=== PATIENT | male | born 1975 | race Caucasian/White ===

== ENCOUNTER → 2024-07-25 | Outpatient (CLI) | payer BC, OTHER, SELFPAY ==
[2024-07-25 09:17] LABS: Basophils # (Auto) 0.1 Thou/mm3 (0.0-0.2); Basophils % (Auto) 1 % (0-2.5); Eosinophils # (Auto) 0.1 Thou/mm3 (0.0-0.5); Eosinophils % (Auto) 3 % (0-10); Hematocrit 37.5 % (41.0-53.0); Hemoglobin 13.8 g/dL (13.5-16.0); Immature Granulocytes % (Auto) 0 % (0-0); Lymphocytes # (Auto) 1.4 Thou/mm3 (1.0-4.8); Lymphocytes % (Auto) 40 % (10-50); Mean Corpuscular HGB Conc 36.8 g/dl (31.0-37.0); Mean Corpuscular Volume 87 fL (80-100); Monocytes # (Auto) 0.3 Thou/mm3 (0.0-0.8); Monocytes % (Auto) 9 % (0-12); Neutrophils # (Auto) 1.6 Thou/mm3 (1.8-7.7); Neutrophils % (Auto) 47 % (37-80); Nucleated Red Blood Cell % 0 /100 WBC (0); Platelet Count 162 Thou/mm3 (140-440); RDW Standard Deviation 40.1 fL (35.1-43.9); Red Blood Count 4.31 Miln/mm3 (4.50-5.90); White Blood Count 3.5 Thou/mm3 (3.8-10.6)
[2024-07-25 09:42] LABS: Alanine Aminotransferase 39 U/L (10-49); Albumin, Serum 4.2 gm/dL (3.5-5.0); Albumin/Globulin Ratio 1.8 (1.2-2.2); Alkaline Phosphatase 68 U/L (46-116); Anion Gap 3 (7-16); Aspartate Amino Transferase 21 U/L (0-34); BUN/Creatinine Ratio 16 Ratio (12-20); Bilirubin,Total 3.4 mg/dL (0.3-1.2); Blood Urea Nitrogen 16 mg/dL (9-23); Calcium 9.3 mg/dL (8.3-10.6); Calcium (Corrected) 9.3 mg/dL (8.5-10.1); Carbon Dioxide 27.7 mMol/L (20.0-31.0); Chloride 108 mMol/L (98-107); Globulin 2.4 gm/dL (2.3-3.5); Glucose 92 mg/dL (74-106); Osmolality,Calculated 278 (275-295); Potassium 4.7 mMol/L (3.4-5.1); Sodium 139 mMol/L (136-145); Total Protein 6.6 gm/dL (5.7-8.2); eGFR > 60 See Note
== END | disposition home or self-care (01) ==
PROVIDERS: PCP Family Medicine; Referring Provider Nurse Practitioner Family; Visit Provider Nurse Practitioner Family
DX: D64.9 Anemia, unspecified (principal); D72.819 Decreased white blood cell count, unspecified
CPT/HCPCS: 36415; 80053; 85025

== ENCOUNTER 2024-07-29 10:24 | Outpatient (RCR) | payer BC, OTHER, SELFPAY ==
--- NOTE | 2024-07-30 06:41 | CTCCONSULT_ITS ---
[address] [address] CONSULTATION NOTE DATE OF VISIT: 07/30/2024 NAME: BLAYNE MARCUS Account:??[id number] : 1975 AGE: 49 DIAGNOSIS: Anemia, unspecified Elevated white blood cell count, unspecified(leukocytosis)Leukopenia and history of anemia Hyperbilirubinemia from Gilbert's syndrome REFERRING PHYSCIAN: Randee Thomas PRIMARY PHYSCIAN: Randee Thomas REASON FOR CONSULTATION: Leukopenia, hyperbilirubinemia and anemia REASON FOR TODAY?S VISIT patient is here for follow-up patient was referred due to decreased WBC and history of anemia. Patient says was diagnosed with Gilbert's syndrome. Patient take care that he ea ts small frequent meals. He has mildly low hemoglobin white cell count and elevated bilirubin. He s ays his labs his always been like this. Patient is here for follow-up HISTORY OF PRESENT ILLNESS: Blayne Balderas is a 49-year-old Chinese-speaking male who was referred due to leukopenia and history of anemia. Patient had a colonoscopy done on 02/29/2024. Pat ient had a colonoscopy screening done 02/29/2024 showed hemorrhoids and mild diverticulosis, repeat co lonoscopy in 10 years. Had endoscopy done on 10/01/2020 showed GERD, no bleeding. 07/24/2023: WBC 3.9, ANC 2.3, hemoglobin 13.7, MCV 88, platelets 160,000 11/26/2023: WBC 2.8, ANC 1.2, hemoglobin 13.7, MCV 87, platelets 167,000 01/09/2024: Peripheral blood smear-minimal anemia with unremarkable red blood cell morphology 01/09/2024: WBC 3.8, ANC 2.2, hemoglobin 13.9, MCV 87, platelets 175,000 04/08/2024: WBC 3.5, ANC 1.8, hemoglobin 13.8, MCV 87, platelets 164,000, AST 27, ALT 38, T. bili 4.8, TSH 1.43 PAST MEDICAL HISTORY: PAST SURGICAL HISTORY: FAMILY HISTORY: SOCIAL HISTORY: [employer] HISTORY: MEDICATIONS: Rachael [fexofenadine hcl] pantoprazole Medications last reconciled 06/24/2024 ALLERGIES: Penicillins REVIEW OF SYSTEMS Neurological: No headache, seizures or blurring of vision. Gastrointestinal: No nausea, vomiting, diarrhea or constipation. Cardiovascular: No palpitations or angina pains. Respiratory: No cough, chest pain or shortness of breath. PHYSICAL EXAMINATION: Vital Signs: Reviewed and are stable Pain: 0 Alert oriented x 4 MSE 90 mouth: No Lesions. Neck: Soft, supple, no adenopathy. Chest: Clear to auscultation. No wheezes or rales audible. Cardiac: Rhythm regular, no murmurs or gallops present. Abdomen: Soft. No hepatosplenomegaly. No splenomegaly. Extremities: No pedal edema. Cyanosis. LABORATORY DATA: Date 07/25/2024 Time 8:23 AM CBC ? ??WHITE BLOOD COUNT (Thou/mm3) 3.5 L ??RED BLOOD COUNT (Miln/mm3) 4.31 L ??HEMOGLOBIN (gm/dl) 13.8 ??HEMATOCRIT (%) 37.5 L ??MCV (MEAN CORPUSCULAR VOL) (fl) 87 ??MCH (MEAN CORPUSCULAR HGB) (pg) 32.0 ??MCHC (MEAN CORPSCULR HGB CONC) (gm/dl) 36.8 ??RDW (RBC DISTRIBUTION WD) SD (fl) 40.1 ??PLATELET COUNT (Thou/mm3) 162 ??NEUTROPHILS %, AUTO (%) 47 ??LYMPH %, AUTO (%) 40 ??MONO %, AUTO (%) 9 ??EOS %, AUTO (%) 3 ??BASO %, AUTO (%) 1 ??NUCLEATED RBC % (/100 WBC) 0 ??NEUTROPHILS, AUTO (Thou/mm3) 1.6 L ??LYMPH, AUTO (Thou/mm3) 1.4 ??MONO, AUTO (Thou/mm3) 0.3 ??EOS, AUTO (Thou/mm3) 0.1 ??BASO, AUTO (Thou/mm3) 0.1 ??NUCLEATED RBC # (Thou/mm3) 0.00 ??IMMATURE GRANULOCYTES % AUTO (%) 0 ??IMMATURE GRANULOCYTES, AUTO (Thou/mm3) 0.00 Chemistry ? ??GLUCOSE,RANDOM (mg/dL) 92 ??BLOOD UREA NITROGEN (mg/dL) 16 ??CREATININE (mg/dL) 1.00 ??SODIUM (mmol/L) 139 ??POTASSIUM (mmol/L) 4.7 ??CHLORIDE (mmol/L) 108 H ??CO2 (CARBON DIOXIDE) (mmol/L) 27.7 ??ANION GAP (mmol/L) 3 L ??OSMOLALITY, CALC 278 ??BUN/CREATININE RATIO (Ratio) 16 ??CrCl (CandG) (ml/min) 96.96 ??AST/SGOT (Unit/L) 21 ??ALT/SGPT (Unit/L) 39 ??ALKALINE PHOSPHATASE (Unit/L) 68 ??BILIRUBIN, TOTAL (mg/dL) 3.4 H ??PROTEIN TOTAL (gm/dl) 6.6 ??ALBUMIN, SERUM (gm/dl) 4.2 ??GLOBULIN (gm/dl) 2.4 ??ALBUMIN/GLOBULIN RATIO 1.8 ??CALCIUM, SERUM (mg/dL) 9.3 ??CALCIUM SERUM (CORRECTED) (mg/dL) 9.3 ? ??Initials [facility] ??Approved By [facility] Other Labs ? ??CrCl (J) (ml/min) 74.0 ??eGFR (See Note) > 60 ASSESSMENT AND PLAN: #1. History of leukopenia for about 20 years according to patient. Labs shows white cell count about 3.5 Patient denies any fever weight loss Patient have no infections Will do nutritional workup Will check for liver status to make sure patient do not have cirrhosis Will check for spleen Patient have mixed genetic inheritance and patient's white cell count will be normal for him #2 hyperbilirubinemia and history of anemia Patient is known to have Gilbert's syndrome Will check for liver function Hemoglobin electrophoresis Advised follow-up with gastroenterology If patient is actively hemolyzing, will check for LDH and haptoglobin EGD showed GERD with esophagitis, acute gastritis without bleeding, 10/01/2023 Patient is not anemic anymore Will also check for testosterone level labs before the next visit Electronically signed by Dr. Mauricio Colmenares electronically Signed by: {Object.Sanct_ID*PnP.NameFL}, {Object.Sanct_ID*PnP.Suffix} on {Object.Sanc t_Date} at {Object.Sanct_Time} ?? cc: Ricky Thomas, Referring: Randee Thomas This document was completed utilizing speech recognition software. Grammatical errors, random word in sertions, pronoun errors, and incomplete sentences are an occasional consequence of this system due t o software limitations, ambient noise, and hardware issues. Any formal questions or concerns about th e content, text or information contained within the body of this dictation should be directly address ed to the provider for clarification. Patient: BLAYNE MARCUS : 1975 MR#: [id number] CONSULTATION NOTE Page 6 of 6
== END 2024-08-09 23:59 | disposition home or self-care (01) ==
LOC: SCTC 10:24
PROVIDERS: PCP Family Medicine; Referring Provider Family Medicine; Visit Provider Internal Medicine Hematology & Oncology
DX: D64.9 Anemia, unspecified (principal); D72.819 Decreased white blood cell count, unspecified; E80.4 Gilbert syndrome; E80.6 Other disorders of bilirubin metabolism
CPT/HCPCS: 99212; G0463

== ENCOUNTER → 2024-08-22 | Outpatient (CLI) | payer BC, OTHER, SELFPAY ==
[2024-08-22 11:44] LABS: Immature Reticulocyte Fraction 7.7 % (2.3-13.4); Reticulocyte % (Auto) 1.4 % (0.5-1.5); Reticulocyte Absolute Auto 60.3 Biln/L (25.0-75.0); Reticulocyte Hgb Content 37.5 pg (28.0-35.0)
[2024-08-22 12:00] LABS: Bilirubin,Direct 0.9 mg/dL (0.0-0.3); Bilirubin,Total 3.1 mg/dL (0.3-1.2); LDH (Lactate Dehydrogenase) 185 U/L (120-246)
[2024-08-22 12:10] LABS: Folate 18.71 ng/mL (>5.38); Vitamin B12 401 pg/mL (211-911)
[2024-08-22 12:25] LABS: Ferritin 108 ng/mL (10.5-307.3); Iron 97 mcg/dL (65-175); Percent Iron Saturation 31 % (20-55); Total Iron Binding Capacity 305 mcg/dL (250-425); Unsaturated Iron Binding 208 (225-295)
[2024-08-29 05:07] LABS: Hemoglobinopathy Hematocrit 39.4 % (38.5-50.0); Hemoglobinopathy Hemoglobin 13.4 g/dL (13.2-17.1); Hemoglobinopathy Hemoglobin A2 2.6 % (2.0-3.2); Hemoglobinopathy MCH 31.8 pg (27.0-33.0); Hemoglobinopathy MCV 93.6 fL (80.0-100.0); Hemoglobinopathy Red Blood Cnt 4.21 Million/uL (4.20-5.80)
[2024-08-29 13:39] LABS: Haptoglobin* <10 mg/dL (43-212); Testosterone,Total* 841 ng/dL (250-1100)
[2024-08-29 13:40] LABS: Hemoglobinopathy Hemoglobin A 97.4 %; Hemoglobinopathy RDW 12.9 % (11.0-15.0)
== END | disposition home or self-care (01) ==
PROVIDERS: PCP Nurse Practitioner Family; Referring Provider Internal Medicine Hematology & Oncology; Visit Provider Internal Medicine Hematology & Oncology
DX: D64.9 Anemia, unspecified (principal); D72.829 Elevated white blood cell count, unspecified
CPT/HCPCS: 36415; 82247; 82248; 82607; 82728; 82746; 83010; 83020; 83540; 83550; 83615; 84403; 85014; 85018; 85041; 85046

== ENCOUNTER → 2024-09-04 | Outpatient (CLI) | payer BC, OTHER, SELFPAY ==
--- NOTE | 2024-09-04 07:15 | XR_ITS ---
Examination: Abdomen sonogram, complete Date and time of exam: September 04, 2024 0716 hours INDICATIONS: Abdominal pain history, cholecystectomy November 2023. Technique: Multiple real-time grayscale transabdominal sonographic images of the abdomen have been obtained. Findings: Absent gallbladder Normal common bile duct 0.3 cm Pancreatic head 2.2 cm Aorta not enlarged Liver normal size 13.1 cm Normal hepatopedal portal venous flow Patent IVC Right kidney 10.4 x 6.4 x 6.3 cm cortex 1.3 cm Left kidney 11.0 x 4.7 x 5.6 cm renal cortex 1.2 cm Mild to moderate bilateral renal parenchymal scar formation 13 mm cyst anterior left kidney No hydronephrosis Spleen 9.5 cm IMPRESSION: Negative for hepatosplenomegaly
== END | disposition home or self-care (01) ==
LOC: CDIM 06:40
PROVIDERS: PCP Family Medicine; Referring Provider Internal Medicine Hematology & Oncology; Visit Provider Internal Medicine Hematology & Oncology
DX: D64.9 Anemia, unspecified (principal)
CPT/HCPCS: 76700

== ENCOUNTER 2024-09-09 08:39 | Outpatient (RCR) | payer BC, OTHER, SELFPAY | END 2024-09-09 23:59 | disposition home or self-care (01) | LOC: SCTC 08:39 | PROVIDERS: PCP Family Medicine; Referring Provider Family Medicine; Visit Provider Nurse Practitioner Family | DX: Z09 Encounter for follow-up examination after completed treatment for conditions other than malignant neoplasm (principal); Z86.2 Personal history of diseases of the blood and blood-forming organs and certain disorders involving the immune mechanism; E80.4 Gilbert syndrome; E80.6 Other disorders of bilirubin metabolism | CPT/HCPCS: 99212; G0463 ==

== ENCOUNTER 2024-10-23 14:35 | Outpatient (RCR) | payer BC, OTHER, SELFPAY | END 2024-11-07 23:59 | disposition home or self-care (01) | LOC: SCTC 14:35 | PROVIDERS: PCP Family Medicine; Referring Provider Family Medicine; Visit Provider Nurse Practitioner Family | DX: D72.819 Decreased white blood cell count, unspecified (principal); E80.4 Gilbert syndrome | CPT/HCPCS: 99212; G0463 ==

== ENCOUNTER → 2024-10-23 | Outpatient (CLI) | payer BC, OTHER, SELFPAY ==
[2024-10-23 11:49] LABS: Basophils % (Auto) 1 % (0-2.5); Eosinophils # (Auto) 0.1 Thou/mm3 (0.0-0.5); Eosinophils % (Auto) 2 % (0-10); Hematocrit 37.9 % (41.0-53.0); Immature Granulocytes % (Auto) 0 % (0-0); Immature Granulocytes Auto 0.01 Thou/mm3 (0.00-0.00); Immature Reticulocyte Fraction 5.6 % (2.3-13.4); Lymphocytes # (Auto) 1.4 Thou/mm3 (1.0-4.8); Lymphocytes % (Auto) 39 % (10-50); Mean Corpuscular HGB Conc 36.9 g/dl (31.0-37.0); Mean Corpuscular Hemoglobin 32.3 pg (25.0-35.0); Mean Corpuscular Volume 87 fL (80-100); Monocytes # (Auto) 0.3 Thou/mm3 (0.0-0.8); Monocytes % (Auto) 8 % (0-12); Neutrophils # (Auto) 1.8 Thou/mm3 (1.8-7.7); Neutrophils % (Auto) 50 % (37-80); Nucleated Red Blood Cell % 0 /100 WBC (0); Platelet Count 160 Thou/mm3 (140-440); RDW Standard Deviation 39.3 fL (35.1-43.9); Red Blood Count 4.34 Miln/mm3 (4.50-5.90); Reticulocyte % (Auto) 1.3 % (0.5-1.5); Reticulocyte Absolute Auto 54.7 Biln/L (25.0-75.0); Reticulocyte Hgb Content 35.6 pg (28.0-35.0); White Blood Count 3.6 Thou/mm3 (3.8-10.6)
[2024-10-23 12:02] LABS: Alanine Aminotransferase 51 U/L (10-49); Albumin, Serum 4.3 gm/dL (3.5-5.0); Albumin/Globulin Ratio 1.7 (1.2-2.2); Alkaline Phosphatase 67 U/L (46-116); Anion Gap 6 (7-16); Aspartate Amino Transferase 30 U/L (0-34); BUN/Creatinine Ratio 15 Ratio (12-20); Bilirubin,Total 4.4 mg/dL (0.3-1.2); Blood Urea Nitrogen 17 mg/dL (9-23); Calcium 9.8 mg/dL (8.3-10.6); Calcium (Corrected) 9.8 mg/dL (8.5-10.1); Carbon Dioxide 28.8 mMol/L (20.0-31.0); Chloride 109 mMol/L (98-107); Creatinine (Component) 1.1 mg/dL (0.6-1.3); Globulin 2.5 gm/dL (2.3-3.5); Glucose 96 mg/dL (74-106); LDH (Lactate Dehydrogenase) 168 U/L (120-246); Osmolality,Calculated 288 (275-295); Potassium 4.7 mMol/L (3.4-5.1); Sodium 144 mMol/L (136-145); Total Protein 6.8 gm/dL (5.7-8.2); eGFR > 60 See Note
[2024-10-23 12:07] LABS: Folate 16.77 ng/mL (>5.38); Vitamin B12 463 pg/mL (211-911)
[2024-10-23 12:38] LABS: Ferritin 117 ng/mL (10.5-307.3); Iron 214 mcg/dL (65-175); Percent Iron Saturation 67 % (20-55); Total Iron Binding Capacity 315 mcg/dL (250-425); Unsaturated Iron Binding 101 (225-295)
[2024-10-30 06:25] LABS: Haptoglobin* <10 mg/dL (43-212)
== END | disposition home or self-care (01) ==
LOC: SCTO 10:08
PROVIDERS: PCP Family Medicine; Referring Provider Nurse Practitioner Family; Visit Provider Nurse Practitioner Family
DX: D64.9 Anemia, unspecified (principal); D72.829 Elevated white blood cell count, unspecified
CPT/HCPCS: 36415; 80053; 82607; 82728; 82746; 83010; 83540; 83550; 83615; 85025; 85046

== ENCOUNTER → 2024-11-18 | Outpatient (CLI) | payer BC, OTHER, SELFPAY ==
[2024-11-18 14:57] LABS: Basophils % (Auto) 0 % (0-2.5); Eosinophils % (Auto) 0 % (0-10); Hematocrit 37.3 % (41.0-53.0); Hemoglobin 13.9 g/dL (13.5-16.0); Immature Granulocytes % (Auto) 0 % (0-0); Immature Granulocytes Auto 0.03 Thou/mm3 (0.00-0.00); Immature Reticulocyte Fraction 7.4 % (2.3-13.4); Lymphocytes # (Auto) 1.4 Thou/mm3 (1.0-4.8); Lymphocytes % (Auto) 12 % (10-50); Mean Corpuscular HGB Conc 37.3 g/dl (31.0-37.0); Mean Corpuscular Volume 86 fL (80-100); Monocytes # (Auto) 0.6 Thou/mm3 (0.0-0.8); Monocytes % (Auto) 5 % (0-12); Neutrophils # (Auto) 9.8 Thou/mm3 (1.8-7.7); Neutrophils % (Auto) 83 % (37-80); Nucleated Red Blood Cell % 0 /100 WBC (0); Platelet Count 174 Thou/mm3 (140-440); RDW Standard Deviation 39.1 fL (35.1-43.9); Red Blood Count 4.34 Miln/mm3 (4.50-5.90); Reticulocyte % (Auto) 1.7 % (0.5-1.5); Reticulocyte Absolute Auto 73.3 Biln/L (25.0-75.0); Reticulocyte Hgb Content 37.2 pg (28.0-35.0); White Blood Count 11.8 Thou/mm3 (3.8-10.6)
[2024-11-18 15:16] LABS: Alanine Aminotransferase 64 U/L (10-49); Albumin, Serum 4.5 gm/dL (3.5-5.0); Albumin/Globulin Ratio 1.7 (1.2-2.2); Alkaline Phosphatase 71 U/L (46-116); Anion Gap 8 (7-16); Aspartate Amino Transferase 32 U/L (0-34); BUN/Creatinine Ratio 15 Ratio (12-20); Blood Urea Nitrogen 16 mg/dL (9-23); Calcium 9.9 mg/dL (8.3-10.6); Calcium (Corrected) 9.9 mg/dL (8.5-10.1); Carbon Dioxide 27.2 mMol/L (20.0-31.0); Chloride 108 mMol/L (98-107); Creatinine (Component) 1.1 mg/dL (0.6-1.3); Globulin 2.7 gm/dL (2.3-3.5); Glucose 108 mg/dL (74-106); LDH (Lactate Dehydrogenase) 198 U/L (120-246); Osmolality,Calculated 287 (275-295); Potassium 4.3 mMol/L (3.4-5.1); Sodium 143 mMol/L (136-145); Total Protein 7.2 gm/dL (5.7-8.2); eGFR > 60 See Note
[2024-11-18 15:18] LABS: Ferritin 115 ng/mL (10.5-307.3); Iron 236 mcg/dL (65-175); Percent Iron Saturation 70 % (20-55); Total Iron Binding Capacity 337 mcg/dL (250-425); Unsaturated Iron Binding 101 (225-295)
[2024-11-26 06:51] LABS: Haptoglobin* 17 mg/dL (43-212)
== END | disposition home or self-care (01) ==
LOC: SCTO 14:19
PROVIDERS: PCP Family Medicine; Referring Provider Nurse Practitioner Family; Visit Provider Nurse Practitioner Family
DX: D64.9 Anemia, unspecified (principal); D72.829 Elevated white blood cell count, unspecified
CPT/HCPCS: 36415; 80053; 82728; 83010; 83540; 83550; 83615; 85025; 85046

== ENCOUNTER 2024-11-20 14:42 | Outpatient (RCR) | payer BC, OTHER, SELFPAY | END 2024-12-08 23:59 | disposition home or self-care (01) | LOC: SCTC 14:42 | PROVIDERS: PCP Family Medicine; Referring Provider Family Medicine; Visit Provider Nurse Practitioner Family | DX: E80.6 Other disorders of bilirubin metabolism (principal); E80.4 Gilbert syndrome; Z86.2 Personal history of diseases of the blood and blood-forming organs and certain disorders involving the immune mechanism | CPT/HCPCS: 99212; G0463 ==

== ENCOUNTER → 2024-12-22 | Outpatient (CLI) | payer BC, OTHER, SELFPAY ==
[2024-12-22 11:58] LABS: Alanine Aminotransferase 38 U/L (10-49); Albumin/Globulin Ratio 1.6 (1.2-2.2); Alkaline Phosphatase 78 U/L (46-116); Anion Gap 6 (7-16); Aspartate Amino Transferase 24 U/L (0-34); BUN/Creatinine Ratio 13 Ratio (12-20); Bilirubin,Total 3.5 mg/dL (0.3-1.2); Blood Urea Nitrogen 14 mg/dL (9-23); Calcium 9.1 mg/dL (8.3-10.6); Calcium (Corrected) 9.1 mg/dL (8.5-10.1); Carbon Dioxide 28.2 mMol/L (20.0-31.0); Chloride 110 mMol/L (98-107); Creatinine (Component) 1.1 mg/dL (0.6-1.3); Globulin 2.5 gm/dL (2.3-3.5); Glucose 84 mg/dL (74-106); LDH (Lactate Dehydrogenase) 174 U/L (120-246); Osmolality,Calculated 286 (275-295); Potassium 5.1 mMol/L (3.4-5.1); Sodium 144 mMol/L (136-145); Total Protein 6.5 gm/dL (5.7-8.2); eGFR > 60 See Note
[2024-12-22 12:01] LABS: Ferritin 91 ng/mL (10.5-307.3); Iron 117 mcg/dL (65-175); Percent Iron Saturation 36 % (20-55); Total Iron Binding Capacity 321 mcg/dL (250-425); Unsaturated Iron Binding 204 (225-295)
[2024-12-22 12:20] LABS: Basophils % (Auto) 1 % (0-2.5); Eosinophils # (Auto) 0.1 Thou/mm3 (0.0-0.5); Eosinophils % (Auto) 2 % (0-10); Hematocrit 36.9 % (41.0-53.0); Hemoglobin 13.7 g/dL (13.5-16.0); Immature Granulocytes % (Auto) 0 % (0-0); Immature Granulocytes Auto 0.01 Thou/mm3 (0.00-0.00); Immature Reticulocyte Fraction 8.3 % (2.3-13.4); Lymphocytes # (Auto) 1.1 Thou/mm3 (1.0-4.8); Lymphocytes % (Auto) 38 % (10-50); Mean Corpuscular HGB Conc 37.1 g/dl (31.0-37.0); Mean Corpuscular Hemoglobin 32.2 pg (25.0-35.0); Mean Corpuscular Volume 87 fL (80-100); Monocytes # (Auto) 0.3 Thou/mm3 (0.0-0.8); Monocytes % (Auto) 11 % (0-12); Neutrophils # (Auto) 1.4 Thou/mm3 (1.8-7.7); Neutrophils % (Auto) 48 % (37-80); Nucleated Red Blood Cell % 0 /100 WBC (0); Platelet Count 179 Thou/mm3 (140-440); RDW Standard Deviation 39.9 fL (35.1-43.9); Red Blood Count 4.26 Miln/mm3 (4.50-5.90); Reticulocyte % (Auto) 1.5 % (0.5-1.5); Reticulocyte Absolute Auto 62.2 Biln/L (25.0-75.0); Reticulocyte Hgb Content 36.9 pg (28.0-35.0)
[2024-12-29 08:16] LABS: Haptoglobin* 9 mg/dL (43-212)
== END | disposition home or self-care (01) ==
LOC: SCTO 10:49
PROVIDERS: PCP Family Medicine; Referring Provider Nurse Practitioner Family; Visit Provider Nurse Practitioner Family
DX: D64.9 Anemia, unspecified (principal); D72.829 Elevated white blood cell count, unspecified
CPT/HCPCS: 36415; 80053; 82728; 83010; 83540; 83550; 83615; 85025; 85046

== ENCOUNTER 2024-12-23 09:49 | Outpatient (RCR) | payer BC, OTHER, SELFPAY | END 2025-01-07 23:59 | disposition home or self-care (01) | LOC: SCTC 09:49 | PROVIDERS: PCP Nurse Practitioner Family; Referring Provider Nurse Practitioner Family; Visit Provider Nurse Practitioner Family | DX: Z09 Encounter for follow-up examination after completed treatment for conditions other than malignant neoplasm (principal); Z86.2 Personal history of diseases of the blood and blood-forming organs and certain disorders involving the immune mechanism; E80.4 Gilbert syndrome | CPT/HCPCS: 99212; G0463 ==

== ENCOUNTER → 2025-02-23 | Outpatient (CLI) | payer BC, OTHER, SELFPAY ==
--- NOTE | 2025-02-23 15:00 | XR_ITS ---
Examination: MRI abdomen with intravenous contrast. MRI abdomen without intravenous contrast. Date and time of exam: February 23, 2025 1611 hours INDICATIONS: Elevated white blood cell count beginning one year ago Technique: Multiple axial, sagittal and coronal sections of the abdomen obtained. Transverse images, TR 6020, TE 107. T1 weighted transverse images, TR 582, TE 9.5. T2-weighted sagittal images, TR 4000, TE 105. T2-weighted sagittal images, TR 4000, TE 5. Coronal images, TR 4210, TE 107. Axial and coronal images are obtained post 20 cc intravenous injection, gadolinium. Findings: IMPRESSION: Liver normal size No focal liver lesions or intrahepatic biliary tract dilatation Postcontrast images demonstrate no abnormal enhancement in the liver or spleen Absent gallbladder No pancreatic mass No hydronephrosis renal or ureteral calculi Aorta normal size No ascites No abdominal lymphadenopathy IMPRESSION: Negative for hepatosplenomegaly No focal liver or splenic lesions Normal pancreas No intra or extrahepatic biliary tract dilatation No abdominal lymphadenopathy. Negative for ascites
== END | disposition home or self-care (01) ==
LOC: SMRI 14:53
PROVIDERS: PCP Nurse Practitioner Family; Referring Provider Nurse Practitioner Family; Visit Provider Nurse Practitioner Family
DX: D64.9 Anemia, unspecified (principal); D72.829 Elevated white blood cell count, unspecified
CPT/HCPCS: 74183; A9579

== ENCOUNTER → 2025-02-23 | Outpatient (CLI) | payer BC, OTHER, SELFPAY ==
[2025-02-23 13:48] LABS: Basophils % (Auto) 1 % (0-2.5); Eosinophils % (Auto) 1 % (0-10); Hematocrit 37.1 % (41.0-53.0); Hemoglobin 13.7 g/dL (13.5-16.0); Immature Granulocytes % (Auto) 0 % (0-0); Immature Granulocytes Auto 0.01 Thou/mm3 (0.00-0.00); Immature Reticulocyte Fraction 5.4 % (2.3-13.4); Lymphocytes # (Auto) 1.3 Thou/mm3 (1.0-4.8); Lymphocytes % (Auto) 36 % (10-50); Mean Corpuscular HGB Conc 36.9 g/dl (31.0-37.0); Mean Corpuscular Hemoglobin 31.9 pg (25.0-35.0); Mean Corpuscular Volume 87 fL (80-100); Monocytes # (Auto) 0.3 Thou/mm3 (0.0-0.8); Monocytes % (Auto) 9 % (0-12); Neutrophils # (Auto) 1.9 Thou/mm3 (1.8-7.7); Neutrophils % (Auto) 53 % (37-80); Nucleated Red Blood Cell % 0 /100 WBC (0); Platelet Count 162 Thou/mm3 (140-440); RDW Standard Deviation 39.6 fL (35.1-43.9); Red Blood Count 4.29 Miln/mm3 (4.50-5.90); Reticulocyte % (Auto) 1.5 % (0.5-1.5); Reticulocyte Absolute Auto 64.4 Biln/L (25.0-75.0); Reticulocyte Hgb Content 37.1 pg (28.0-35.0); White Blood Count 3.5 Thou/mm3 (3.8-10.6)
[2025-02-23 14:11] LABS: Alanine Aminotransferase 42 U/L (10-49); Albumin, Serum 4.1 gm/dL (3.5-5.0); Albumin/Globulin Ratio 1.7 (1.2-2.2); Alkaline Phosphatase 73 U/L (46-116); Anion Gap 9 (7-16); Aspartate Amino Transferase 32 U/L (0-34); BUN/Creatinine Ratio 13 Ratio (12-20); Bilirubin,Total 3.2 mg/dL (0.3-1.2); Blood Urea Nitrogen 13 mg/dL (9-23); Calcium 8.8 mg/dL (8.3-10.6); Calcium (Corrected) 8.8 mg/dL (8.5-10.1); Carbon Dioxide 26.4 mMol/L (20.0-31.0); Chloride 109 mMol/L (98-107); Globulin 2.4 gm/dL (2.3-3.5); Glucose 100 mg/dL (74-106); Osmolality,Calculated 286 (275-295); Potassium 4.9 mMol/L (3.4-5.1); Sodium 144 mMol/L (136-145); Total Protein 6.5 gm/dL (5.7-8.2); eGFR > 60 See Note
[2025-02-23 14:16] LABS: Folate 15.66 ng/mL (>5.38); Vitamin B12 440 pg/mL (211-911)
[2025-02-23 14:20] LABS: Ferritin 93 ng/mL (10.5-307.3); Iron 141 mcg/dL (65-175); Percent Iron Saturation 43 % (20-55); Total Iron Binding Capacity 322 mcg/dL (250-425); Unsaturated Iron Binding 181 (225-295)
[2025-03-02 06:57] LABS: Haptoglobin* 15 mg/dL (43-212)
== END | disposition home or self-care (01) ==
LOC: SCTO 11:37
PROVIDERS: PCP Nurse Practitioner Family; Referring Provider Nurse Practitioner Family; Visit Provider Nurse Practitioner Family
DX: D64.9 Anemia, unspecified (principal); D72.829 Elevated white blood cell count, unspecified
CPT/HCPCS: 36415; 80053; 82607; 82728; 82746; 83010; 83540; 83550; 85025; 85046

== ENCOUNTER 2025-03-02 10:18 | Outpatient (RCR) | payer BC, OTHER, SELFPAY | END 2025-03-09 23:59 | disposition home or self-care (01) | LOC: SCTC 10:18 | PROVIDERS: PCP Nurse Practitioner Family; Referring Provider Nurse Practitioner Family; Visit Provider Nurse Practitioner Family | DX: D72.819 Decreased white blood cell count, unspecified (principal); E80.4 Gilbert syndrome; E80.6 Other disorders of bilirubin metabolism; K21.00 Gastro-esophageal reflux disease with esophagitis, without bleeding; Z88.2 Allergy status to sulfonamides | CPT/HCPCS: 99212; G0463 ==

== ENCOUNTER → 2025-05-14 | Outpatient (CLI) | payer BC, OTHER, SELFPAY ==
[2025-05-14 10:19] LABS: Collection Type, Urine Clean Catch; Squamous Epithelial Cell,Urine 0 /hpf (0-5)
[2025-05-14 10:53] LABS: Basophils # (Auto) 0.0 Thou/mm3 (0.0-0.2); Basophils % (Auto) 1 % (0-2.5); Eosinophils # (Auto) 0.1 Thou/mm3 (0.0-0.5); Eosinophils % (Auto) 2 % (0-10); Hematocrit 40.1 % (41.0-53.0); Hemoglobin 14.3 g/dL (13.5-16.0); Immature Granulocytes Auto 0.00 Thou/mm3 (0.00-0.00); Lymphocytes # (Auto) 1.1 Thou/mm3 (1.0-4.8); Lymphocytes % (Auto) 35 % (10-50); Mean Corpuscular HGB Conc 35.7 g/dl (31.0-37.0); Mean Corpuscular Hemoglobin 32.1 pg (25.0-35.0); Mean Corpuscular Volume 90 fL (80-100); Monocytes # (Auto) 0.2 Thou/mm3 (0.0-0.8); Monocytes % (Auto) 7 % (0-12); Neutrophils # (Auto) 1.7 Thou/mm3 (1.8-7.7); Neutrophils % (Auto) 55 % (37-80); Nucleated Red Blood Cell # 0.00 Thou/mm3 (0.00-0.00); Nucleated Red Blood Cell % 0 /100 WBC (0); Platelet Count 176 Thou/mm3 (140-440); RDW Standard Deviation 41.4 fL (35.1-43.9); Red Blood Count 4.46 Miln/mm3 (4.50-5.90); White Blood Count 3.1 Thou/mm3 (3.8-10.6)
[2025-05-14 11:01] LABS: Bilirubin,Urine Negative (Negative); Blood,Urine Negative (Negative); Clarity,Urine Clear (Clear/Hazy); Color,Urine Lt-Yellow (Lt Yel-Yel); Culture Indicated,Urine Not Indicated; Glucose, Urine Negative (Negative); Ketones,Urine Negative (Negative); Leukocyte Esterase,Urine Negative (Negative); Nitrite,Urine Negative (Negative); PH,Urine 6.5 (5.0-7.0); Protein,Urine Negative (Neg - Trace); RBC,Urine < 1 /hpf (0-3); Specific Gravity,Urine 1.011 (1.001-1.035); Urobilinogen,Urine Negative mg/dL (0.0-1.0); WBC,Urine < 1 /hpf (0-5)
[2025-05-14 11:06] LABS: Alanine Aminotransferase 34 U/L (10-49); Albumin, Serum 4.3 gm/dL (3.5-5.0); Albumin/Globulin Ratio 1.8 (1.2-2.2); Alkaline Phosphatase 72 U/L (46-116); Anion Gap 10 (7-16); Aspartate Amino Transferase 21 U/L (0-34); BUN/Creatinine Ratio 12 Ratio (12-20); Bilirubin,Total 3.8 mg/dL (0.3-1.2); Blood Urea Nitrogen 12 mg/dL (9-23); Calcium 9.8 mg/dL (8.3-10.6); Calcium (Corrected) 9.8 mg/dL (8.5-10.1); Carbon Dioxide 29.0 mMol/L (20.0-31.0); Cardiac Risk Estimate 3.3 RATIO (4.0-6.7); Chloride 105 mMol/L (98-107); Cholesterol 164 mg/dL (132-200); Creatinine (Component) 1.0 mg/dL (0.6-1.3); Globulin 2.4 gm/dL (2.3-3.5); Glucose 93 mg/dL (74-106); HDL Cholesterol 49 mg/dL (40-60); LDL Cholesterol,Calculated 98 mg/dL (0-130); Osmolality,Calculated 286 (275-295); Potassium 4.1 mMol/L (3.4-5.1); Sodium 144 mMol/L (136-145); Thyroid Stimulating Hormone 1.35 uIU/mL (0.55-4.78); Total Protein 6.7 gm/dL (5.7-8.2); Triglycerides 86 mg/dL (30-150); eGFR > 60 See Note
[2025-05-14 11:17] LABS: Ferritin 87 ng/mL (10.5-307.3); Iron 185 mcg/dL (65-175); Percent Iron Saturation 56 % (20-55); Prostate Specific Antigen 0.14 ng/mL (0-4.00); Total Iron Binding Capacity 328 mcg/dL (250-425); Unsaturated Iron Binding 143 (225-295)
[2025-05-20 15:35] LABS: Kappa Light Chain, Free 20.2 mg/L (3.3-19.4); Lambda Light Chain, Free 13.3 mg/L (5.7-26.3)
[2025-05-21 07:02] LABS: Copper* 55 mcg/dL (70-175); IgG, Serum* 1344 mg/dL (600-1640); Kappa/Lambda, Free Ratio 1.52 (0.26-1.65); Zinc, Plasma* 90 mcg/dL (60-130)
== END | disposition home or self-care (01) ==
LOC: COPL 09:12
PROVIDERS: PCP Family Medicine; Referring Provider Internal Medicine Hematology; Visit Provider Nurse Practitioner Family
DX: Z00.00 Encounter for general adult medical examination without abnormal findings (principal); D64.9 Anemia, unspecified
CPT/HCPCS: 36415; 80053; 80061; 81001; 82525; 82728; 82784; 83521; 83540; 83550; 84153; 84443; 84630; 85025

== ENCOUNTER → 2025-08-21 | Outpatient (CLI) | payer BC, OTHER, SELFPAY ==
--- NOTE | 2025-08-21 09:30 | XR_ITS ---
MRI shoulder, right, without contrast. Date and time: August 21, 2025, 0937 hours INDICATIONS: Shoulder pain stiffness decreased range of motion 1 year Technique: Multiple axial, sagittal and coronal sections of the shoulder have been obtained. Siemens high-resolution 1.5 Hazel MRI scanner is utilized. Axial fat-suppressed sections, TR 2350, TE 18 T2-weighted coronal fat-saturated images, TR 3500, TE 7100 T1-weighted coronal images, TR 500, TE 15 T2-weighted sagittal fat-saturated images, TR 3500, TE 57 T1-weighted sagittal sections, TR 504, TE 13. Findings: Supraspinatus tendon insertion is abnormal, 12 mm partial-thickness articular surface tear. Infraspinatus tendon insertion is intact. Subscapularis insertion is intact. Subscapularis bursa is not seen. Long head of the biceps is in the bicipital groove. No definite tear of the biceps superior labral anchor is seen. Retraction of the musculotendinous junction of the rotator cuff is not seen . Tendinosis pattern is severe. Distance between the acromium and humeral head is 5.6 mm Atrophy of the supraspinatus muscle is moderate. Atrophy of the infraspinatus muscle is mild. Sagittal sections demonstrate a horizontal acromion. Acromioclavicular joint demonstrates mild osteoarthritis . Osacromiale is not identified. No labral tear. Bony glenoid fossa on the sagittal sections does not demonstrate osseous defect. Occult fracture or area of avascular necrosis is not seen. Acromioclavicular joint separation is not visible. Defect in the posterolateral margin of the humeral head is not seen Impression: 12 mm partial-thickness articular surface tear supraspinatus
--- NOTE | 2025-08-21 10:00 | XR_ITS ---
Examination: MRI humerus without contrast Date and time of exam: August 21, 2025, 0958 hours INDICATIONS: Upper shoulder pain biceps pain anterior posterior humerus pain stiffness decreased range of motion 1 year Technique: Multiple MRI axial and sagittal sections humerus Sagittal T2-weighted images, TR 3500, TE 118 T1 weighted transverse sections, TR 688 T8.5, T2-weighted sagittal sections T1 weighted sagittal sections TR 621, TE 30 T2 axial sections, TR 4, 190, TE 84. Findings: Please see the shoulder MRI report for description of partial-thickness articular surface tear of supraspinatus Long head of the biceps is in the bicipital groove There is no retraction of the biceps tendon There is no hemorrhage in the biceps muscle Humeral head neck and shaft are intact IMPRESSION: Long head of the biceps is intact in the bicipital groove No retraction of the biceps tendon Please see the MRI shoulder report
== END | disposition home or self-care (01) ==
PROVIDERS: PCP Nurse Practitioner Family; Referring Provider Nurse Practitioner Family; Visit Provider Nurse Practitioner Family
DX: M75.101 Unspecified rotator cuff tear or rupture of right shoulder, not specified as traumatic (principal); M25.511 Pain in right shoulder
CPT/HCPCS: 73218; 73221